=== PATIENT | male | born 1950 | race Caucasian/White ===

== ENCOUNTER 2019-11-27 15:19 | Inpatient (IN) | payer OTHER ==
[~2019-11-27] VITALS: Ht 172.7 cm; Wt 58.5 kg
--- NOTE | ~2019-11-27 | HC ---
[facility] [place] [address] CONSULTATION Name: ARELI FELTON Room #: 509-P [facility] IN M.R.#: [id number] Admission: 11/27/19 Attend Phys: Castro David MD Discharge: 12/06/19 Date of : 50 Report #: [id number] THIS REPORT FOR: cc: Reece Arndt MD, Richard K. MD Deutch,Blayne Jones. PhD ~ CC: Castro Arndt DATE OF SERVICE: 12/04/2019 BEHAVIORAL STATUS EXAM ATTENDING PHYSICIAN: Castro David M.D. LIQUOR MAKER: Blayne Montoya, Ph.D. CLINICAL PRESENTATION: The patient is a 69-year-old male admitted to the rehabilitation unit for a comprehensive inpatient rehabilitation program. He was initially admitted from acute in-hospital rehabilitation from the [facility]. The patient had a right total hip replacement on 08/18/2019, it has dislocated multiple times. He has had no closed reduction in the first 2 times and utilizing abductor brace. His past medical history includes COPD, urinary retention secondary to benign prostatic hypertrophy, prior hip replacement with subsequent dislocations and a right knee surgery from a crush injury in 2017. 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 He has posterior hip precautions and is allowed weightbearing as tolerated. History of COPD, urinary retention secondary to BPH, postop anemia, history of alcohol dependence, nicotine dependence, and benign prostatic hypertrophy, on Flomax and Proscar. Neuropsychological consultation was requested to provide assistance in the assessment of cognitive and emotional status and to provide recommendations and services. Prior to this most recent issue with his hip dislocations, he was living independently with his significant other for about 11 years. 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 He does not report a prior history of treatment for mood or behavior disorder. Alcohol use appears excessive since he has had two DUIs. TECHNIQUES UTILIZED: Clinical interview, review of medical records, staff consultation and behavioral observation, mini-mental status exam 2 standard version, clock drawing and verbal fluency assessment (letter and category). EXAMINATION FINDINGS: The patient was alert and cooperative with the [address] [address] CONSULTATION Name: ARELI FELTON Room #: 509-P [facility] IN ..#: [id number] Admission: 11/27/19 Attend Phys: Castro David MD Discharge: 12/06/19 Date of : 50 Report #: [id number] assessment. He accurately described events surrounding his admission. There is no evidence of aphasia. His thoughts are logical and goal oriented. There is no evidence of thought disorder. He describes his symptoms to include sleep disturbance, decreased appetite and tiredness and fatigue. He does not report difficulty with anxiety, depression, memory or word finding. His performance on the MMSE-2 brief version is within normal limits with a raw score 16 of 16. Performance on the MMSE-2 standard version is within normal limits with a raw score of 29 of 30. The patient had difficulty with copying a simple geometric design. Verbal fluency assessment was extremely low for letter and category. Letter fluency was at the 4th percentile with a T-score of 32. Category fluency was a T-score of 24, which is less than 1%. Overall, total fluency was a T-score of 24, which is less than 1%. The patient is presenting with difficulty in visual and spatial constructions and verbal fluency, can suggest executive dysfunction. He is alert and oriented with scores on the MMSE-2 SV of 29 of 30. DIAGNOSTIC IMPRESSION: 1. Alcohol use disorder -- persistent. 2. Mild neurocognitive disorder, unspecified, without behavior disorder. RECOMMENDATIONS: The patient would likely benefit from discontinuation of alcohol use. Variability in cognition with executive functioning including planning and problem solving, which may be associated with chronic alcohol use and situational stress. Conflict with his significant other is reported. Thank you very much for allowing me to provide the consultation on this patient. By: [id number] lBayne Montoya, PhD /nt
[~2019-11-27 15:19] MED LIST: ACETAMINOPHEN325 M1 PO; ACETAMINOPHEN500 M1 PO; ASA81BEC PO; CALCIUM 500 WI1 EAC4 PO; CENTRUM SILVER1 EAC7 PO; COLACE100 MG PO; COMPAZINE25 MG RECTAL; DEEP SEA NASAL44 M1 NASAL; DULCOLAX10 MG RECTAL; FLEXERIL PO; FLOMAX0.4 MG PO; HEPARIN SO5000 UNIT6 SUBQ; MELATONIN3 M1 PO; MIRALAX119 GM PO; NICOTINE TRANSD21 M1 TRANSDERM; ROBITUSSIN100 MG/53 PO; SLOW FE142 MG PO
[2019-11-27 18:00] VITALS: BP 140/79
--- NOTE | 2019-11-27 19:00 | NUR ---
ASSUMED CARE OF PT AT 1800 WHEN PT BROUGHT TO UNIT BY OUTSIDE TRANSPORTATION FROM [facility]. PT ASSISTED INTO BED BY NURSING STAFF. ADMISSION VITALS, WEIGHT, HEIGHT OBTAINED. PT PROVIDED WITH MEAL UPON DISCHARGE. FALL PRECAUTIONS IN PLACE AND NURSING WILL CONTINUE TO MONITOR.
[2019-11-27 19:45] VITALS: BP 144/67
--- NOTE | 2019-11-28 05:47 | NUR ---
Patient is a new transfer from [facility] after failure of his right Hip Prosthetic implant. He is A&O x4 and very pleasant. He was able understand and answer all questions clearly and showed no signs of confusion or reduced mental status. During the admission process with the patient, once code status was explained to him, he requested a change of his code status from DNR to Full Code. HEATHER Acuna was notified and she came to the patient's room to confirm patient request, before changing him back to Full code in the system. Patient is worried about his significant other not being able to visit her in the hospital because she works during the day till 6pm and can only get to the hospital around or after 7pm. Patient has been informed a request will be placed to appropriate quarters to see if anything could be done about that (Special requst for after hours visit). Patient had no major complaints, requested some tylenol after watching TV, then retired for the night, eyes closed, resting with visible respirations.
[2019-11-28 05:58] LABS: HEMATOCRIT 35.8 % (42.0-52.0); HEMOGLOBIN 11.9 gm/dL (14.0-18.0); MCH 31.5 pg (26.0-34.0); MCHC 33.3 g/dL (28.0-37.0); MCV 94.5 fL (80.0-100.0); RBC 3.79 mil/uL (4.50-6.00); RDW 14.4 % (10.5-14.5)
[2019-11-28 06:14] LABS: CALCIUM 8.8 mg/dL (8.5-10.1); CREATININE 1.3 mg/dL (0.7-1.3); POTASSIUM 4.4 mmol/L (3.5-5.1)
[2019-11-28 06:33] LABS: ALBUMIN 3.3 g/dL (3.4-5.0); DIRECT BILIRUBIN 0.1 mg/dL (<0.1-0.2); MAGNESIUM 2.1 mg/dL (1.8-2.4); PHOSPHORUS 3.5 mg/dL (2.5-4.9); TOTAL BILIRUBIN 0.4 mg/dL (0.2-1.0); TOTAL PROTEIN 6.8 g/dL (6.4-8.2)
[2019-11-28 08:00] VITALS: BP 140/79
--- NOTE | 2019-11-28 16:31 | NUR ---
Assumed pt care this am, VS stable. Seen by Dr. David and PT, brace is to be on at all times and only taken out for dressing change. Pain is managed with medications, diet and medications are tolerated well. Was able to work with PT and OT today. POC followed with no signs or verbalizations of distress noted.
[2019-11-28 19:22] VITALS: BP 160/71
--- NOTE | 2019-11-29 05:25 | NUR ---
Patient is going on day two at the unit and states he is acclamatizing well and is focused on getting better everyday so he can get back to what he considers as normal life. Patient has a non-productive smoker's cough but states it does not bother him too much. Because of his retention, patient has had to straight cath himself successfuly, twice during the shift to void. He is alert and oriented x4, complains of hip pain related to surgical procedure which responds to Tylenol. Patient took off his brace (for hip support) midway through shift, stating he felt it was too tight and uncomfortable. He was educated on the importance of his brace remaining on, and acknowledged understanding. Patient was calm throu the shift, resting on his bed, with eyes closed and visible breathing, no signs of distress.
[2019-11-29 07:22] VITALS: BP 136/72
--- NOTE | 2019-11-29 11:38 | NUR ---
chart review. cm visited with sharon at bedside, cm cont to wear own face mask and shield during bedside visit. intro to cm and team meetings. noted pt tearful off and on during entire visit. active listen and support. he reported lives with sig other who doesnt get off work till 5pm so cant even bring me clothing or visit . dislocated hip 3 times since total him in august. live in apartment 2[address] floor, if go out front will have 2 full flights of stairs that is why go out the back there is only 2 steps. have cane and walker. shower chair. manage own medicaine. not driven since 2003. will cont following as needed for dc needs.
--- NOTE | 2019-11-29 14:18 | NUR ---
Nutrition: RD received wound consult which is incision related to S/P arthroplasty following right prosthetic hip implant failure/dislocation. Pt eating very well on regular diet, 100% most meals. Did voice UBW 133#, Current 129# so possible 4# decline although pt has ate well. Request re-weigh. Pt has a thin frame. Agrees to one ensure enlive daily. Consider low risk at present.
--- NOTE | 2019-11-29 18:37 | NUR ---
PT ALERT AND ORIENTED TIMES FOUR. VSS. PT C/O PAIN PRN PAIN MEDICATIONS GIVEN WITH GOOD RELEIF. PT TOLERATES MEDS AND GRECIA. PT WORKED WELL WITH PT/OT PT UP WALKING AROUND ON THE UNIT. PT PROGRESSING TOWARDS POC GOALS.
[2019-11-29 20:13] VITALS: BP 146/80
--- NOTE | 2019-11-30 01:01 | NUR ---
ASSUMED CARE OF PT AT 1915. PT IS A&OX4. IS ON ROOM AIR. IS STABLE. REPORTS MILD PAIN IN RIGHT HIP THAT IS BEING MANGED WITH TYLENOL & OTHER THERAPUETIC TECHNIQUES. PT IS WT BEARING BENJAMIN, WITH POSTERIOR HIP PRECAUTIONS & NO RIGHT HIP EXTENSION. FALL PRECAUTIONS & HOURLY ROUNDING CONTINUED THIS SHIFT. SOULEYMANE FELICIAG C/D/I. PT HAS BRACE IN PLACE. HE REPORTED BRACE WAS A LITTLE UNCOMFORTABLE & RUBBING AGAINST HIS ABDOMEN. THIS NURSE APPLIED GUAZE & ABD A BARRIER. PT WAS GRATEFUL. LABS & VITALS REVIEWED. PT IS ABLE TO REPOSITION SELF IN BED. PT IS CURRENTLY SLEEPING. CALL LIGHT WITHIN REACH. ALARM ON. WILL CONTINUE TO MONITOR.
[2019-11-30 08:15] VITALS: BP 138/81
--- NOTE | 2019-11-30 11:04 | NUR ---
[facility] PATIENT IS ALERT AND ORIENTED X4. PATIENT IS WBAT TO HIS RIGHT HIP. PATIENT HAS BRACE ON. LUNGS ARE CLEAR AND DEMINISHED. PATIENT IS ON R.A. PATIENT HAS NON-PRODUCTIVE COUGH. PATIENT CONTINUES ON RESPIRATORY TX. UP IN W/C WITH ASSIST OF ONE STAFF. FALL AN SAFETY PROTOCOLS IN PLACE. C/O PAIN IN HIS RIGHT HIP. MEDICATED WITH PRN PAIN MED. CONTINUES TO PROGRESS SLOWLY TOWARDS D/C GOALS. WILL CONTINUE TO MONITER.
--- NOTE | 2019-11-30 13:19 | NUR ---
team meeting, reccommendation: hip precaution. dc 21st ( pt, nursing, ot). no dme. came with brace from [facility]. when and when not to wear the brace.
[2019-11-30 19:34] VITALS: BP 146/77
--- NOTE | 2019-12-01 04:09 | NUR ---
TYLENOL FOR PAIN, LIDOCAINE TO RIGHT KNEE INITIATED. PATIENT ABLE TO STAND AND TRANSFER WITH STANDBY ASSIST TO BED WITH BRACE ON. ABLE TO ADJUST BRACE NEEDED AND SELF CATHS SELF GOING ON TEN YEARS NOW. NEERU MCGARRY PER REQUEST.
[2019-12-01 08:20] VITALS: BP 149/80
--- NOTE | 2019-12-01 08:39 | NUR ---
PT SPOKE WITH DR LAWRENCE'S NURSE ON 11/29/2019, NURSE STATED THAT Pt IS TO CONTINUE WEARING BRACE AT ALL TIMES. UNSURE OF AROM RESTRICTIONS. PT AWAITING CALL BACK WITH AROM RESTRICTIONS, SPECIFICALLY ABD AROM
--- NOTE | 2019-12-01 14:59 | NUR ---
ASSUMED CARE AT 0700. PATIENT IS ALERT AND ORIENTED X4. PATIENT TORRES, GENERATION ENGINEERING TECHNOLOGIST ARE EQUAL. LUNGS ARE CLEAR AND DEMINISHED. ABD IS SOFT WITH BSX4. PAITENT STRAIGHT CATH'S HIMSELF R/T RETENTION. UP IN THE W/C FOR MEALS. PATIENT HAS BRACE ON . PATIENT IS UP WITH ASSIST OF 1 STAFF , GAIT BELT , AND WALKER. C/O PAIN IN HIS RIGHT HIP. MEDICATED WITH PRN PAIN MED. FALL AND SAFETY PROTOCLS IN PLACE. C/O PAIN ABOVE. CONTINUES TO PROGRESS TOWARDS D/C GOALS WILL CONTINUE TO MONITER.
--- NOTE | 2019-12-01 16:40 | NUR ---
FAXED REFERRAL TO [facility] SPOKE WITH NORM IN INTAKE PT WAS ON SERVICE WITH THEM PRIOR TO ADM. THEY WILL RESUME CARE AT DISCHARGE.
[2019-12-01 19:24] VITALS: BP 137/66
--- NOTE | 2019-12-02 04:53 | NUR ---
Patient is alert and oriented x4, pleasant with staff and able to make needs known. He complains of little pain which responds well to Tylenol. Patient wore his brace in bed as recommended and was educated on turning himself from side to side for relief of pain from his bottom area. Due to history of urinary retention, patient had to do a staraight catheterization of himself to void his bladder; urine was clear with no signs of blood or sediments. Patient is resting in room with eyes cosed, breathing visibly with no signs of distress.
[2019-12-02 07:20] VITALS: BP 154/73
--- NOTE | 2019-12-02 15:26 | NUR ---
ASSUMED CARE OF PT AT 0700. PT IS A&OX4. TACHYCARDIA AND HYPERTENSION NOTED ON ASSESSMENT, PROVIDER NOTIFIED. PAIN TO LLE NOTED, PO MEDICATIONS ADMINISTERED AND PT PARTICIPATED IN SCHEDULED THERAPIES. TREMOR TO THE LEFT HAND NOTED, PROVIDER NOTIFIED AND PT GIVEN ANXIETY MEDICATIONS. ATTEMPTED TO CONTACT ORTHOPEDIC CLINIC, NO CALL RETURNED AT THIS TIME. HIP BINDER IN PLACE AT ALL TIMES. PT SELF CATHS NEEDED. FALL PRECAUTIONS IN PLACE AND NURSING WILL CONTINUE TO MONITOR.
[2019-12-02 19:16] VITALS: BP 142/75
--- NOTE | 2019-12-03 04:20 | NUR ---
Patient is alert and oriented x4, with clear speech, able to hold a conversation and makes his need known. He shows nosigns of respiratory distress and swallowing difficulty. Patient was pleasant and compliant with medications. He can void, but has a history of urinary retention which requires him to do a straight catheterization of himself periodically; he did once this shift, after two small voids. Patient stayed resting in bed, with eyes closed and visible respirations and no major complaints or issues needing attention.
[2019-12-03 07:13] VITALS: BP 148/73
--- NOTE | 2019-12-03 14:41 | NUR ---
ASSUMED CARE AT 0700. PATIENT IS ALERT AND ORIENTED X4. PATIENT MELISSA'Roger. PATIENT HAS RIGHT HIP BRACE ON. UP IN W/C FOR BREAKFAST. UP WITH ASSIST OF 1 STAFF WITH GAIT BELT AND WALKER. FALL AND SAFETY PROTOCOLS IN PLACE. C/O LEFT HIP PAIN. MEDICATED WITH PRN PAIN MED. CONTINUES TO PROGRESS SLOWLY TOWARDS D/C GOALS. WILL CONTINUE TO MONITER.
[2019-12-03 18:26] VITALS: BP 131/68
--- NOTE | 2019-12-04 02:25 | NUR ---
MANAGING HIP BRACE AND SELF CATHING. PLEASANT, ATIVAN FOR ANXIETY, MELATONIN FOR INSOMNIA, SLEEPING OM ROUNDS, STATES FEELING THAT THERAPY IS GOING WELL
[2019-12-04 08:00] VITALS: BP 132/65
--- NOTE | 2019-12-04 19:33 | NUR ---
ASSUMED CARE OF PT AT 0700. PT IS A&OX4 AND VITAL SIGNS ARE STABLE. PT REPORTED SOME BACK PAIN WHICH WAS MANAGED WITH PO MEDICAITONS. PT SELF CATHS NEEDED FOR URINARY RETENTION. PT DENIES ANXIETY THIS SHIFT. UP WITH ASSISTANCE WITH HIP BINDER IN PLACE. CALLS APPROPRIATELY FOR ASSITANCE. FALL PRECAUTIONS IN PLACE AND NURSING WILL CONTINUE TO MONITOR.
[2019-12-04 20:00] VITALS: BP 134/67
--- NOTE | 2019-12-05 07:41 | NUR ---
progress pt pain controlled with tylenol. up with sba walker right hip brace, pedal pulses positive brisk cap refill easily pedal and dorsiflexes drsg c/d/i.
[2019-12-05 08:46] VITALS: BP 109/49
--- NOTE | 2019-12-05 18:41 | NUR ---
ASSUMED CARE OF PT AT 0700. PT IS A&OX4 AND VITAL SIGNS ARE STABLE. PT DENIES PAIN AND PARTICIPATED IN THERAPIES. SELF CATH X2 THIS SHIFT FOR RETENTION. HIP BINDER IN PLACE WHEN OOB. DRESSING TO RIGHT HIP C/D/I. REPORTS SOME ANXIETY IN AM. FALL PRECAUTIONS IN PLACE AND NURSING WILL CONTINUE TO MONITOR.
[2019-12-05 19:30] VITALS: BP 135/64
--- NOTE | 2019-12-06 04:14 | NUR ---
MANAGING OWN HIP BRACE AND SELF-CATHING. RIGHT HIP DRESSING DRY AND INTACT. PLANS ON HAVING IT REMOVED AT DOCTOR APPOINTMENT TODAY AFTER HE IS DISCHARGED FROM REHAB UNIT.
[2019-12-06 07:57] VITALS: BP 135/64
[2019-12-06 08:05] VITALS: BP 140/79
[2019-12-06] MEDS ORDERED: VITAMIN B-12500 MCG PO (08:09)
--- NOTE | 2019-12-06 08:30 | NUR ---
georgette received message from at 0800, need to see pt rt uber transportation and is dc early this am. georgette went and provided education at pt door way rt he will have to set up his own uber. " no i already have the transportation set up to pick me up here at er doors and take me to my appointment"/lg. lovely home today with [facility].
--- NOTE | 2019-12-06 09:10 | NUR ---
ASSUMED CARE AT 0700. PATIENT IS ALERT AND ORIENTED X4. PATIENT TORRES'S SAMPLE DYE MIXER ARE EQUAL. LUNGS ARE CLEAR AND DEMINISHED. ABD IS SOFT WITH BSX4. UP TO THE [facility]SC TO HAVE BM. PATIENT IS UP WITH SBA WITH BRACE ON RIGHT HIP. FALL AND SAEFTY PROTOCOLS IN PLACE. DENIES PAIN AT THIS TIME. CONTINUE TO PROGRESS TOWARDS D/C GOALS. PLAN F/U APPT THIS AM WITH [facility] AT 10:40 AM WILL CONTINUE TO MONITER
--- NOTE | 2019-12-06 10:15 | NUR ---
PATIENT D/C'D TO DR. HEATON OFFICE , THEN HOME. PATIENT LEFT IN W/C IN GOOD CONDITION WITH BRACE ON. PATIENT IS UP WITH SBA WITH GAIT BELT AND WALKER. PATIENT LEFT IN CAB TO GO TO DR. KRISHNAN.
--- NOTE | 2019-12-06 11:10 | NUR ---
PT DISCHARGING TODAY TO HOME WITH [facility] FAXED DC ORDERS/SUMMARY SPOKE WITH NORM IN INTAKE SHE RECEIVED ORDERS AND WILL NOTIFY PT TO SET UP VISITS.
--- NOTE | 2019-12-06 15:16 | PLAN ---
[facility] [place] [address] REHAB UNIT PLAN OF CARE Name: ARELI FELTON Room #: 509-P [facility] IN M.R.#: [id number] Admission: 11/27/19 Attend Phys: Castro David MD Discharge: 12/06/19 Date of : 50 Report #: [id number] THIS REPORT FOR: //name// CC: Castro Arndt DATE OF SERVICE: 11/29/2019 PROGRESS NOTE AND OVERALL PLAN OF CARE SUBJECTIVE: The patient was seen back today in followup. He in no distress. Temperature 36.7, pulse 85, respirations is 16, and blood pressure 136/72. He is alert, he is pleasant. He has a right hip dressing in place. No calf swelling. He ended up taking off the brace last night as it was uncomfortable. I discussed with him trying to wear that brace as much as possible. We specifically discussed his hip precautions. Physical therapy had him up and he was min assist sit to stand. Gait was min assist 150 feet front-wheeled walker. ASSESSMENT: 1. Recurrent right total hip arthroplasty with dislocation of the femoral component now status post surgical fixation on 11/23/2019. He has posterior hip precautions. No right hip extension, allowed weightbearing as tolerated bilateral lower extremities. I encouraged him to use the hip orthosis as much as he reasonably can within comfort level. 2. History of chronic obstructive pulmonary disease. 3. Urinary retention secondary to BPH, was cathing himself. 4. Postoperative anemia. 5. History of alcohol intake 3-4 shots of whiskey every night. 6. Nicotine dependence. 7. BPH, on Flomax and Proscar. PLAN: The overall plan of care is based on the preadmission screen, post-admission physician evaluation and information garnered from therapy assessments. 1. Estimated length of stay is 7-10 days. 2. Medical prognosis is reasonably good. 3. Anticipated interventions includes the interdisciplinary acute inpatient rehabilitation program. 4. Anticipated functional outcomes would be for the patient to become modified independent with transfers, mobility, ADLs, so that he can hopefully return back to his prior living situation. 5. Discharge destination would be back home with his significant other. 6. Expected therapy by discipline includes PT and OT 1-1/2 [place] [address] REHAB UNIT PLAN OF CARE Name: ARELI FELTON Room #: 509-P [facility] IN [facility].#: [id number] Admission: 11/27/19 Attend Phys: Castro David MD Discharge: 12/06/19 Date of : 50 Report #: [id number] five days a week throughout the duration of the acute inpatient rehabilitation stay. <ELECTRONICALLY SIGNED> By: Castro David MD 12/06/19 1516 0821 [id number] Castro David MD /nt
--- NOTE | 2019-12-06 15:16 | H ---
[facility] [place] [address] HISTORY AND PHYSICAL Name: ARELI FELTON Room #: 509-P [facility] IN M.R.#: [id number] Admission: 11/27/19 Attend Phys: Castro David MD Discharge: 12/06/19 Date of : 50 Report #: [id number] THIS REPORT FOR: cc: Reece Arndt MD,Reece David,Castro Hardin MD ~ CC: Castro Arndt HISTORY AND PHYSICAL/POSTADMISSION PHYSICIAN EVALUATION HISTORY OF PRESENT ILLNESS: The patient is a 69-year-old male who was admitted for acute in-hospital inpatient rehabilitation from the [facility]. The patient originally had a right total hip replacement on 08/18/2019. It is since dislocated x 3. He had a closed reduction and the first 2 times he utilized an abductor brace and now with this last time he underwent open reduction and surgical procedure with further tightening of that hip joint and closure. He now is allowed weightbearing as tolerated, but has posterior hip precautions and no right hip extension. He comes over from [facility] with an abductor brace to wear. He has had some problems with urinary retention and is noted to self-catheterization 3-4 times a day. He has now been admitted for acute in-hospital inpatient rehabilitation. PRIOR MEDICAL HISTORY: Includes COPD, urinary retention secondary to BPH. PRIOR SURGICAL HISTORY: Includes the prior right hip replacement with subsequent dislocations. He has had right knee surgery and he had a crush injury to the right femur in 2017 with surgery. MEDICATIONS: Please see the full medication listing. ALLERGIES: NAPROXEN. HABITS: Cigarettes one pack per day. Alcohol, 3 shots of whiskey daily. FAMILY HISTORY: Heart disease in his father. SOCIAL HISTORY: Lives in an apartment with his female significant other and her son, one floor, 2 steps in through the back. They both work. He is retired. Apparently used a cane. REVIEW OF SYSTEMS: Did not offer any complaints of chest pain, shortness of breath, or abdominal discomfort. PHYSICAL EXAMINATION: GENERAL: He is a 69-year-old white male in no obvious distress. VITAL SIGNS: Last recorded temperature 36.9, pulse 86, respirations 20, blood [address] [address] HISTORY AND PHYSICAL Name: ARELI FELTON Room #: 509-P [facility] IN M.R.#: [id number] Admission: 11/27/19 Attend Phys: Castro David MD Discharge: 12/06/19 Date of : 50 Report #: [id number] pressure 144/67. He is of slender build. HEENT: Facies appeared symmetric. CHEST: Some decreased breath sounds diffusely, otherwise clear. CARDIOVASCULAR: Regular rate and rhythm. ABDOMEN: Bowel sounds positive, nontender. GENITOURINARY AND RECTAL: Deferred. EXTREMITIES: He has functional range of motion of both upper extremities. Strength is grade 4+/5. DTRs are trace to 1. Right hip is dressed. There is no focal calf swelling. He can dorsiflex the right ankle. I did not range that right hip. Left lower extremity, no focal calf swelling. Tone appeared to be intact. Strength is probably a grade 4+/5. No calf swelling on the right calf either. He is needing assistance with basic functional mobility skills. ASSESSMENT: A 69-year-old white male with the following problems: 1. Recurrent right total hip arthroplasty with dislocation of the femoral component now status post surgical fixation on 11/23/2019. He has posterior hip precautions. No right hip extension, allowed weightbearing as tolerated in bilateral lower extremities. 2. History of chronic obstructive pulmonary disease. 3. Urinary retention secondary to benign prostatic hypertrophy caths himself. 4. Postop anemia. To be following up in hemoglobin as per the hospitalist service. 5. History of alcohol dependence, 3-4 shots of whiskey every night. 6. Nicotine dependence. 7. Benign prostatic hypertrophy, on Flomax and Proscar. PLAN: The patient has been admitted for acute in-hospital inpatient rehabilitation. From a postadmission physician evaluation perspective, there are no relevant changes since the preadmission screening. Please see the above prior and current medical and functional conditions and comorbidities. Please see the patient's previous and current functional status. As far as risk of complications, he has the above noted medical comorbidities. Initial plan of care involves the interdisciplinary acute inpatient rehabilitation program. Measurable functional goals would be for him to become modified independent with transfers, mobility, ADLs and to be safe as far as his functional mobility skills to help prevent further dislocation. Prognosis is reasonably good with estimated length of stay probably at least 7-10 days. Potential barriers would include his above noted comorbidities and decreased functional status. The patient will be having the hip brace in place. Therapies to work with him [facility] [address] [place] [address] HISTORY AND PHYSICAL Name: ARELI FELTON Room #: 509-P [facility] IN M.R.#: [id number] Admission: 11/27/19 Attend Phys: Castro David MD Discharge: 12/06/19 Date of : 50 Report #: [id number] further on education regarding his hip precautions. These were discussed with him. <ELECTRONICALLY SIGNED> By: Castro David MD 12/06/19 1516 0820 0926 Castro David MD /nt
== END 2019-12-06 10:00 | disposition home health service (06) | DRG 948 ==
PROVIDERS: Internal Medicine; Nurse Practitioner Family; ADMIT Physical Medicine & Rehabilitation; ATTEND Physical Medicine & Rehabilitation
DX: R53.81 Other malaise (principal); S73.004A Unspecified dislocation of right hip, initial encounter; T84.020A Dislocation of internal right hip prosthesis, initial encounter; R33.9 Retention of urine, unspecified; J44.9 Chronic obstructive pulmonary disease, unspecified; D64.9 Anemia, unspecified; N40.0 Benign prostatic hyperplasia without lower urinary tract symptoms; Z72.0 Tobacco use; F10.10 Alcohol abuse, uncomplicated
CPT/HCPCS: 10112